=== PATIENT | female | born 1995 | race Caucasian/White ===

== ENCOUNTER 2018-05-07 14:19 | Emergency (ER) | payer BC ==
--- NOTE | 2018-05-07 15:59 | EDPHY ---
H & P Smoking Status: Never smoked Time Seen by Provider: 05/07/18 14:56 HPI/ROS: CLINICAL IMPRESSION: Left 2nd finger laceration, subungual hematoma, crush injury ASSESSMENT/PLAN: 22-year-old left-hand dominant female presents to the emergency department with left 2nd finger pain after she accidentally slammed the finger in a car door. Tetanus up-to-date. Two-point discrimination and distal neurovascular exam intact. No radiologic evidence to suggest underlying fracture. Patient received a digital block and wound was thoroughly irrigated and was not amenable to sutures. Subungual hematoma was drained. Aluminum finger splint provided for comfort. Rice treatment reviewed, warning signs return to ED outlined and discharge. DIFFERENTIAL DIAGNOSIS: includes but not limited to laceration of tendon or vascular structure, underlying fracture, laceration with retained FB ED PROCECURES: Laceration Repair Verbal consent obtained by patient. Risks discussed, including but not limited to infection, pain, retained foreign body, need for additional repair, poor cosmetic result, tendon damage, nerve damage, poor wound healing, vascular damage. Alternatives to repair discussed. Spurger protocol used to establish correct patient, procedure, equipment, high school learning support teacher, and site. Anesthesia obtained by digital nerve block at left 2nd finger MCP joint. Anesthetized with 0.5% bupivacaine without epinephrine. Laceration location distal left 2nd finger, length 0.5 cm, depth 2 mm, Repair type simple, intermediate, complex. Patient was prepped and draped in usual sterile fashion. Hemostasis achieved with direct pressure. Wound explored through full range of motion and entire depth of wound probed and visualized with gloved finger. No suspicion for nerve damage, tendon damage, underlying fracture, vascular damage, foreign body, or contamination. Area was cleansed with Shur-Clens and irrigated with sterile saline as per protocol. No foreign body or material removed. Repair method no sutures needed. Subungual hematoma drained with cautery. Wound care: Clean and dry x 24 hours, gently clean with soap and water, cover with topical antibiotic ointment/bandage. CHIEF COMPLAINT: Laceration HPI: [ Pleasant 22-year-old female presents to the emergency department with an acute laceration to the left 2nd digit after she accidentally slammed the finger in a car door. Patient is left-hand dominant. She reports no sensory loss but a "pressure sensation". No obvious deformity. No hand pain. No other injuries. Tetanus reported as up-to-date PAST MEDICAL HISTORY: None reported Pertinent Past Surgical History: None reported Social History: Student at [employer] in her senior year REVIEW OF SYSTEMS: All other systems negative Constitutional: No fever, no chills Musculoskeletal: No deformity, positive 2nd digit pain on the left-hand Skin: Laceration to left 2nd digit Neurological: No sensory loss or weakness, 2 point discrimination intact. PHYSICAL EXAM: General Appearance: Alert, oriented, appropriate for age, cooperative, NAD, well hydrated, non-toxic appearing, VSS, no hypoxia. Neurological: Alert and oriented x 3 Skin: Laceration to the distal, dorsal surface of the 2nd digit of the left hand just below the cuticle of the nail. Small subungual hematoma noted. Musculoskeletal: [ Full range of motion, sensation intact, 2 point discrimination intact, no obvious open fracture MEDICAL DECISION MAKING: Patient was seen independently. Secondary supervising physician at time of evaluation was Dr. Hernandez. Diagnosis: Left 2nd digit subungual hematoma, distal left 2nd finger crush injury. New, requires workup Summary: See assessment and plan for summary of ED visit Independent visualization of images, tracing, or specimens yes. Patient Progress improved. (Nickolas Marquez) Constitutional: Initial Vital Signs Temperature (C) 36.8 C 05/07/18 14:27 Heart Rate 68 05/07/18 14:27 Respiratory Rate 18 05/07/18 14:27 Blood Pressure 115/86 H 05/07/18 14:27 O2 Sat (%) 98 05/07/18 14:27 O2 Delivery Mode Room Air Allergies/Adverse Reactions: No Known Allergies Allergy (Unverified 03/30/16 15:00) Home Medications: Medication Instructions Recorded Spironolactone 05/07/18 MDM/Departure - MDM Imaging: I viewed and interpreted images myself - [facility] Imaging Results: Imaging Impressions Hand X-Ray 05/07/18 15:27 Impression: Soft tissue injury. No acute fracture. ED Course/Re-evaluation: I did not see this patient while she was in the emergency department. However her care was discussed with PA while the patient was in the department. I agree with treatment plan and management (Max Hernandez) - Depart Disposition: Home, Routine, Self-Care Clinical Impression: Finger laceration Qualifiers: Encounter type: initial encounter Finger: index finger Damage to nail status: without damage Foreign body presence: without foreign body Laterality: left Qualified Code(s): S61.211A - Laceration without foreign body of left index finger without damage to nail, initial encounter Subungual hematoma of fingernail Qualifiers: Encounter type: initial encounter Qualified Code(s): S60.10XA - Contusion of unspecified finger with damage to nail, initial encounter Condition: Good Instructions: Laceration (ED) Additional Instructions: DISCHARGE INSTRUCTIONS FROM YOUR DOCTOR Thank you for visiting our emergency department today. Please keep in mind that discharge from the emergency department does not mean that there is nothing wrong - it simply means that we have not identified an emergency condition that requires further evaluation or treatment in the hospital. You should always plan to follow up with primary care for re-evaluation of your condition in the next 2-3 days. If you have been referred to a specialist, please call as soon as possible (today or tomorrow) to schedule your follow up appointment at the appropriate time. The x-rays of your finger show no acute fracture or dislocation. You received a digital nerve block which may take several hours to wear off. Wound was thoroughly cleaned and explored. Sutures were not needed. The blister under her nail was drained. An aluminum finger splint was given for comfort. Rest and elevate the affected extremity as much as possible. Ice the affected areas 20 min on, 20 min off for the next several days. Please use Tylenol or ibuprofen over the counter in appropriate doses as outlined on your discharge papers. Take ibuprofen with food and a large glass of water. Follow up with primary care in 3-4 days to recheck. Return to emergency department sooner for increased pain, loss of sensation to the finger, increased swelling, or any other concerns. People present with illnesses and injuries in different ways, and it is always possible that we have missed something. You may always return for re-evaluation if symptoms worsen or if they are not improving or if you develop new/different symptoms. Again, thank you for choosing our emergency department. We hope that you feel better. Referrals: NONE *PRIMARY CARE P,. [Primary Care Provider] - As per Instructions [facility] [Clinic] - 5-7 days, if not improved
[2018-05-07 16:52] VITALS: BP 119/64
== END 2018-05-07 16:51 | disposition home or self-care (01) ==
PROC: 0H9GXZZ Drainage of Left Hand Skin, External Approach (ICD-10-PCS; principal; 2018-05-07)
DX: S61.211A Laceration without foreign body of left index finger without damage to nail, initial encounter (principal); W23.1XXA Caught, crushed, jammed, or pinched between stationary objects, initial encounter; Y92.810 Car as the place of occurrence of the external cause; Y93.9 Activity, unspecified; Y99.9 Unspecified external cause status
CPT/HCPCS: L3925